=== PATIENT | male | born 1985 ===

== ENCOUNTER → 2020-02-29 10:12 | Outpatient (BNVA) | payer MEDICAID, SELFPAY | PROVIDERS: PCP Nurse Practitioner Family; Visit Provider Internal Medicine Endocrinology, Diabetes & Metabolism | DX: Z13.89 Encounter for screening for other disorder (principal) ==

== ENCOUNTER → 2020-03-10 14:58 | Outpatient (BNVA) | payer MEDICAID, SELFPAY | PROVIDERS: PCP Nurse Practitioner Family; Visit Provider Hospitalist | DX: Z76.89 Persons encountering health services in other specified circumstances (principal) ==

== ENCOUNTER 2020-03-19 13:12 | Outpatient (REF) | payer MEDICAID, SELFPAY ==
--- NOTE | 2020-03-19 13:00 | PFT_ITS ---
INDICATION: Lifelong asthma. SPIROMETRY: The FEV1 to FVC 59% with an FEV1 of 3.26 L, which is 82% predicted and an FVC of 5.52 L, which is 113% predicted. There was a significant response to bronchodilators noted. Maximum voluntary ventilation 66% predicted. LUNG VOLUMES: Total lung capacity 119% predicted. Residual volume 162% predicted. DIFFUSION CAPACITY: DLCO 140% predicted. COMPARISONS: None. INTERPRETATION: There is an obstructive ventilatory defect consistent with mild obstructive ventilatory process consistent with asthma, COPD, overlap syndrome, or uncontrolled asthma. The patient does have a significant response to bronchodilators and also has significant small airways disease consistent with his asthma history. There is a moderate decrease in the maximum voluntary ventilation secondary to deconditioning and also worsening dynamic inspiratory capacity. The patient has significant air trapping due to the small airways disease. The patient also has a significantly elevated diffusion capacity suggesting exposure to exogenous carbon monoxide. Clinical correlation warranted. MD STEFANIE Mayer/JAYY / [id number]
--- NOTE | 2020-03-19 14:36 | ECG_ITS ---
Test Reason : TACHY Blood Pressure : / mmHG Vent. Rate : 104 BPM Atrial Rate : 104 BPM P-R Int : 122 ms QRS Dur : 080 ms QT Int : 316 ms P-R-T Axes : 079 077 073 degrees QTc Int : 415 ms Sinus tachycardia Otherwise normal ECG When compared with ECG of 20-AUG-2014 12:25, No significant change was found Referred By: Andre Rose Electronically Signed By:MALIK BRAUN MD
== END 2020-03-19 13:13 | disposition home or self-care (01) ==
LOC: HO.RESP 13:12
PROVIDERS: PCP Nurse Practitioner Family; Visit Provider Hospitalist
DX: J44.9 Chronic obstructive pulmonary disease, unspecified (principal); R00.0 Tachycardia, unspecified
CPT/HCPCS: 93005; 94060; 94727; 94729

== ENCOUNTER → 2020-04-25 15:07 | Outpatient (BNVA) | payer MEDICAID, SELFPAY | PROVIDERS: PCP Nurse Practitioner Family; Visit Provider Hospitalist | DX: Z76.89 Persons encountering health services in other specified circumstances (principal) ==

== ENCOUNTER → 2020-05-30 09:47 | Outpatient (BNVA) | payer MEDICAID, SELFPAY | PROVIDERS: PCP Nurse Practitioner Family; Visit Provider Internal Medicine Endocrinology, Diabetes & Metabolism ==

== ENCOUNTER → 2020-07-24 15:34 | Outpatient (BNVA) | payer MEDICAID, SELFPAY | PROVIDERS: PCP Nurse Practitioner Family; Visit Provider Hospitalist ==

== ENCOUNTER → 2020-12-12 13:02 | Outpatient (BNVA) | payer MEDICAID, SELFPAY | PROVIDERS: PCP Nurse Practitioner Family; Visit Provider Hospitalist ==

== ENCOUNTER 2021-02-10 15:36 | Outpatient (REF) | payer MEDICAID, SELFPAY ==
[2021-02-10 16:48] LABS: MANUAL DIFF FLAG NO
[2021-02-10 16:53] LABS: Basophils Percent Auto 0.1 % (0-2); Eosinophils Percent Auto 0.2 % (0-4); Hematocrit 48.1 % (42-52); Imm Gran Abs Auto 0.19 X10*3/uL (0.00-0.03); Imm Gran Pct Auto 1.3 % (0.0-0.4); Lymphocytes Absolute Auto 1.3 X10*3/uL (1.2-4.9); Lymphocytes Percent Auto 8.9 % (20-40); Mean Corpuscular HGB Conc 33.3 g/dl (31.0-36.0); Mean Corpuscular Hemoglobin 29.7 pg (27.0-33.0); Mean Corpuscular Volume 89.4 fL (80-98); Mean Platelet Volume 8.3 fL (9.4-12.4); Monocytes Absolute Auto 0.9 X10*3/uL (0.1-1.2); Monocytes Percent Auto 6.1 % (2-11); Neutrophils Absolute Auto 12.4 X10*3/uL (2.0-8.3); Neutrophils Percent Auto 83.4 % (45-73); Platelet Count 377 X10*3/uL (160-400); Red Blood Count 5.38 X10*6/uL (4.60-5.80); Red Cell Distribution Width 13.5 % (11.0-16.0); White Blood Count 14.9 X10*3/uL (4.8-10.8)
[2021-02-10 17:14] LABS: Anion Gap 14 (12-20); Blood Urea Nitrogen 16 mg/dL (9-16); Calcium 9.6 mg/dL (8.4-10.2); Carbon Dioxide 32 mmol/L (22-29); Chloride 101 mmol/L (96-108); Estimated Glomerular Filt Rate > 60; Glucose Random 119 mg/dL (60-115); Potassium 4.5 mmol/L (3.3-5.1); Sodium 142 mmol/L (135-145)
[2021-02-10 17:38] LABS: Erythrocyte Sedimentation Rate 2 MM/HR (0-15)
[2021-02-11 13:46] LABS: IgA 205 mg/dL (47-310); IgG 702 mg/dL (600-1640); IgM 72 mg/dL (50-300)
== END 2021-02-10 15:37 | disposition home or self-care (01) ==
LOC: HO.LAB 15:36
PROVIDERS: PCP Nurse Practitioner Family; Visit Provider Hospitalist
DX: J45.50 Severe persistent asthma, uncomplicated (principal); J44.9 Chronic obstructive pulmonary disease, unspecified; E27.3 Drug-induced adrenocortical insufficiency; T38.0X5A Adverse effect of glucocorticoids and synthetic analogues, initial encounter
CPT/HCPCS: 36415; 80048; 82784; 82785; 85025; 85652; 86003; 99212

== ENCOUNTER 2021-04-07 08:49 | Outpatient (REF) | payer MEDICAID, SELFPAY | END 2021-04-07 08:50 | disposition home or self-care (01) | LOC: HO.MDS 08:49 | PROVIDERS: Visit Provider Hospitalist | DX: J45.50 Severe persistent asthma, uncomplicated (principal) | CPT/HCPCS: 96372 ==

== ENCOUNTER 2021-05-08 14:12 | Outpatient (REF) | payer MEDICAID, SELFPAY | END 2021-05-08 14:13 | disposition home or self-care (01) | LOC: HO.MDS 14:12 | PROVIDERS: Visit Provider Hospitalist | DX: J45.50 Severe persistent asthma, uncomplicated (principal) | CPT/HCPCS: 96372; J0517 ==

== ENCOUNTER 2021-06-05 14:02 | Outpatient (REF) | payer MEDICAID, SELFPAY | END 2021-06-05 14:03 | disposition home or self-care (01) | LOC: HO.MDS 14:02 | PROVIDERS: PCP Nurse Practitioner Family; Visit Provider Hospitalist | DX: J45.50 Severe persistent asthma, uncomplicated (principal) | CPT/HCPCS: 96372; J0517 ==

== ENCOUNTER → 2021-06-25 15:04 | Outpatient (BNVA) | payer MEDICAID, SELFPAY | PROVIDERS: PCP Nurse Practitioner Family; Visit Provider Hospitalist | DX: J45.50 Severe persistent asthma, uncomplicated (principal); J44.9 Chronic obstructive pulmonary disease, unspecified; E27.3 Drug-induced adrenocortical insufficiency; T38.0X5D Adverse effect of glucocorticoids and synthetic analogues, subsequent encounter | CPT/HCPCS: 99212 ==

== ENCOUNTER → 2022-05-10 14:27 | Outpatient (BNVA) | payer MEDICAID, SELFPAY | PROVIDERS: PCP Nurse Practitioner Family; Visit Provider Hospitalist | DX: J44.9 Chronic obstructive pulmonary disease, unspecified (principal); J45.50 Severe persistent asthma, uncomplicated; E27.3 Drug-induced adrenocortical insufficiency; T38.0X5A Adverse effect of glucocorticoids and synthetic analogues, initial encounter | CPT/HCPCS: 99212 ==

== ENCOUNTER → 2022-07-05 15:52 | Outpatient (REF) | payer MEDICAID, SELFPAY ==
--- NOTE | 2022-07-05 15:55 | CA_ITS ---
Transthoracic Echocardiogram Patient (Last, First, Middle): Jose Luis Soria R Gender: Male Date of : 1985 Age: 37 Procedure Date: 07/05/2022 Procedure Type: Transthoracic Echocardiogram Location: OP Height: 172.72 cm Weight: 63.5 kg BSA: 1.76 m2 Heart Rate: bpm BP: 122 / 60 mmHg Lighting Technician: Referring MD: Andre Rose MD Hairspring I Inspector: Osbaldo Guerra MD Symptoms: I27.20 - Pulmonary hypertension, unspecified Study Quality: Good ECG Rhythm: Sinus Tachycardia Conclusions: - Grade 1 diastolic dysfunction otherwise normal study Findings Left Ventricle Normal left ventricular size, thickness, and systolic function. The visually estimated ejection fraction is between 60-65%. Spectral Doppler is indicative of an impaired relaxation filling pattern. E/E prime ratio is <8, consistent with normal filling pressures. Evidence suggests grade I (mild) diastolic dysfunction. Right Ventricle Normal right ventricular cavity size and systolic function. Atria Both atria are normal in size. Interatrial shunt cannot be excluded. Aortic Valve Normal aortic valve structure and function. There is no aortic valve stenosis. There is no aortic valve regurgitation. Mitral Valve Normal mitral valve structure and function. There is no mitral valve regurgitation. There is no mitral valve stenosis. Pulmonic Valve The pulmonic valve is likely normal. Tricuspid Valve Normal tricuspid valve structure. There is trace tricuspid valve regurgitation. The right ventricular systolic pressure is normal. Normal right atrial pressure. There is no evidence of pulmonary hypertension. Great Vessels All visible segments of the aorta are normal in size. The pulmonary artery was not well visualized. Venous The inferior vena cava is normal in size and collapses greater than 50% with inspiration. Pericardium/Pleural There is no evidence of pericardial effusion. Prior Study Comparison No prior study available for comparison. Measurements 2D Linear Measurements IVSd: 1.01 0.6-0.9/0.6-1.0 cm LVIDd: 3.98 3.9-5.3/4.2-5.9 cm LVIDd Index: 2.26 2.4-3.2/2.2-3.1 cm/m2 LVIDs: 2.76 2.0-3.6 cm LVPWd: 0.82 0.7-1.1 cm Ao Root: 3.30 2.1-3.5 cm LA Diam: 2.60 2.7-3.8/3.0-4.0 cm LAIDs Index: 1.48 1.5-2.3 cm/m2 LV Mass: 138.19 67-162/88-224 g LV Mass Index: 78.52 43-95/49-115 g/m2 LVOT Diam: 2.00 3.0+(-)1.3 cm Mitral Valve MV Pk E: 0.67 MV PK A: 1.02 MV Decel Time: 85.00 E/A: 0.70 E'Lateral: 11.70 E'Medial: 4.90 E/E' Med: 13.70 E/E' Lat: 5.80 PHT: 25.00 MVA PHT: 8.80 Decel [place]: 7.87 Aortic Valve AoV Pk Dave: 1.21 AoV Mn Dave: 0.82 AoV VTI: 0.23 AoV Pk Grad: 6.00 Aov Mn Grad: 3.00 KATHRINE Cont.VTI: 2.51 LVOT LVOT Pk Dave: 0.98 LVOT Mn Dave: 0.68 LVOT VTI: 0.19 LVOT Pk Grad: 4.00 LVOT Mn Grad: 2.00 LVOT Diam: 2.00 LVOT Area: 3.14 Diastolic Function MV Pk E: 0.67 MV Pk A: 1.02 E/A: 0.70 E'Medial: 4.90 E/E' Med: 13.70 E' Laterial: 11.70 E/E' Lat: 5.80 Right Ventricle TAPSE (mm): 24.00 TVS' Dave: 18.00 Tricuspid Valve TR Pk Dave: 1.99 TR Pk Grad: 16.00 RA Press: 3.00 RVSP: 19.00 Great Vessels Aorta Ao Root-2D: 3.30 2.0-3.7 cm Ao Asc: 3.50 2.1-3.4 cm Pulmonary Valve PV Pk Dave: 0.90 Peak PV Grad: 3.00 Updated in Other Vendor System with Status of Final Osbaldo Guerra MD electronically signed on 07/06/2022 12:33:53 PM with status of Final
== END ==
LOC: HO.CARD 15:52
PROVIDERS: PCP Nurse Practitioner Family; Visit Provider Hospitalist
DX: I27.20 Pulmonary hypertension, unspecified (principal)
CPT/HCPCS: 93306; 93356

== ENCOUNTER → 2022-07-13 15:22 | Outpatient (BNVA) | payer MEDICAID, SELFPAY | PROVIDERS: PCP Nurse Practitioner Family; Visit Provider Hospitalist | DX: J45.50 Severe persistent asthma, uncomplicated (principal); J44.9 Chronic obstructive pulmonary disease, unspecified; E27.3 Drug-induced adrenocortical insufficiency; T38.0X5D Adverse effect of glucocorticoids and synthetic analogues, subsequent encounter | CPT/HCPCS: 99212 ==

== ENCOUNTER → 2022-09-28 14:41 | Outpatient (BNVA) | payer MEDICAID, SELFPAY | PROVIDERS: PCP Nurse Practitioner Family; Visit Provider Hospitalist | DX: J45.50 Severe persistent asthma, uncomplicated (principal); E27.3 Drug-induced adrenocortical insufficiency; M81.8 Other osteoporosis without current pathological fracture; T38.0X5A Adverse effect of glucocorticoids and synthetic analogues, initial encounter; Y92.9 Unspecified place or not applicable; F17.210 Nicotine dependence, cigarettes, uncomplicated; Z79.52 Long term (current) use of systemic steroids | CPT/HCPCS: 99212 ==

== ENCOUNTER 2023-05-09 14:22 | Outpatient (AMB) | payer MEDICAID, SELFPAY ==
[2023-05-09 14:45] VITALS: BP 138/80; PULSE 92; O2SAT 96; BMI 20.7
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
== END 2023-05-09 15:16 | disposition home or self-care (01) ==
PROVIDERS: PCP Nurse Practitioner Family; Visit Provider Hospitalist
DX: J45.50 Severe persistent asthma, uncomplicated (principal); J44.9 Chronic obstructive pulmonary disease, unspecified; E27.3 Drug-induced adrenocortical insufficiency; T38.0X5A Adverse effect of glucocorticoids and synthetic analogues, initial encounter
CPT/HCPCS: 99214

== ENCOUNTER → 2023-05-09 14:22 | Outpatient (BNVA) | payer MEDICAID, SELFPAY | PROVIDERS: PCP Nurse Practitioner Family; Visit Provider Hospitalist | DX: J45.50 Severe persistent asthma, uncomplicated (principal); J44.9 Chronic obstructive pulmonary disease, unspecified; E27.3 Drug-induced adrenocortical insufficiency; T38.0X5D Adverse effect of glucocorticoids and synthetic analogues, subsequent encounter | CPT/HCPCS: 99212 ==

== ENCOUNTER 2024-02-28 13:22 | Outpatient (AMB) | payer MEDICAID, SELFPAY ==
[2024-02-28 13:26] VITALS: BP 126/68; PULSE 114; O2SAT 99; BMI 19.5
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
== END 2024-02-28 13:56 | disposition home or self-care (01) ==
PROVIDERS: Visit Provider Hospitalist
DX: J45.50 Severe persistent asthma, uncomplicated (principal); J44.9 Chronic obstructive pulmonary disease, unspecified; E27.3 Drug-induced adrenocortical insufficiency; T38.0X5A Adverse effect of glucocorticoids and synthetic analogues, initial encounter
CPT/HCPCS: 99214; G2211

== ENCOUNTER → 2024-02-28 13:22 | Outpatient (BNVA) | payer MEDICAID, SELFPAY | PROVIDERS: Visit Provider Hospitalist | DX: J45.50 Severe persistent asthma, uncomplicated (principal); J44.9 Chronic obstructive pulmonary disease, unspecified; E27.3 Drug-induced adrenocortical insufficiency; T38.0X5A Adverse effect of glucocorticoids and synthetic analogues, initial encounter | CPT/HCPCS: 99212 ==

== ENCOUNTER 2024-04-20 09:51 | Outpatient (REF) | payer MEDICAID, SELFPAY ==
[2024-04-20 09:32] VITALS: PULSE 100; O2SAT 97
--- NOTE | 2024-04-20 10:37 | PFT_ITS ---
Indication: Asthma Spirometry [FEV1 to FVC 55%; FEV1 3.04 L; FVC 5.4 L. no significant response to bronchodilators noted.] Lung Volumes [Total lung capacity 122% predicted; residual volume 169% predicted] Diffusion Capacity [DLCO 123% predicted] Comparisons [None] Interpretation [There is an obstructive ventilatory defect consistent with moderate COPD. The patient does appear to have asthma COPD overlap syndrome. No significant response to bronchodilators noted. Lung volumes with a trend of hyperinflation and significant air trapping due to the small airways disease. Diffusing capacity is high normal. Clinical correlation warranted.] MTDD
== END 2024-04-20 09:52 | disposition home or self-care (01) ==
LOC: HO.RESP 09:51
PROVIDERS: Visit Provider Hospitalist
DX: J45.50 Severe persistent asthma, uncomplicated (principal)
CPT/HCPCS: 94010; 94640; 94727; 94729

== ENCOUNTER → 2024-04-20 10:37 | Outpatient (BNV) | payer MEDICAID, SELFPAY | PROVIDERS: Visit Provider Hospitalist | DX: J45.50 Severe persistent asthma, uncomplicated (principal) | CPT/HCPCS: 94060; 94727; 94729 ==

== ENCOUNTER 2024-10-22 11:04 | Outpatient (AMB) | payer MEDICAID, SELFPAY ==
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
[2024-10-22 11:09] VITALS: BP 140/92; PULSE 106; O2SAT 95; BMI 21.3
== END 2024-10-22 11:41 | disposition home or self-care (01) ==
LOC: HO.HPS 11:05
PROVIDERS: PCP Family Medicine; Visit Provider Hospitalist
DX: J45.50 Severe persistent asthma, uncomplicated (principal); J44.9 Chronic obstructive pulmonary disease, unspecified; E27.3 Drug-induced adrenocortical insufficiency; T38.0X5A Adverse effect of glucocorticoids and synthetic analogues, initial encounter
CPT/HCPCS: 99214; G2211

== ENCOUNTER → 2024-10-22 11:04 | Outpatient (BNVA) | payer MEDICAID, SELFPAY | PROVIDERS: PCP Family Medicine; Visit Provider Hospitalist | DX: J45.50 Severe persistent asthma, uncomplicated (principal); J44.9 Chronic obstructive pulmonary disease, unspecified; Z79.52 Long term (current) use of systemic steroids; E27.3 Drug-induced adrenocortical insufficiency; T38.0X5A Adverse effect of glucocorticoids and synthetic analogues, initial encounter | CPT/HCPCS: 99212 ==